=== PATIENT | male | born 1990 | race Caucasian/White ===

== ENCOUNTER 2023-06-05 19:40 | Emergency (ER) | payer MEDICAID ==
[~2023-06-05] VITALS: Ht 188 cm; Wt 103.2 kg
[2023-06-05 19:55] VITALS: BP 132/93; PULSE 103; TEMP 98.6; O2SAT 96
[2023-06-05] MEDS ORDERED: LIDOcaine 1% W/epiNEPHrine 1:100,000 20ml vial IJ ONE (21:05)
[2023-06-05] MEDS ORDERED: sulfamethoxazole/trimethoprim DS (800/160mg) tablet PO ONE (21:05)
[2023-06-05] MEDS ORDERED: HYDROcodone/acetaminophen 5mg/325mg tablet PO ONE (21:05)
[2023-06-05] MEDS ORDERED: TETanus/Pertussis (Acell)/Diphther VAC/PF (Tdap-Adult) 0.5ml syringe IMVAC ONE (21:05)
[2023-06-05 21:17] VITALS: RESP 18
[2023-06-05] MEDS ORDERED: SULF1TAB49 PO (21:36)
[2023-06-05] MEDS ORDERED: TRAM50TA2 PO (21:36)
== END 2023-06-05 22:01 | disposition home or self-care (01) ==
LOC: ER 19:41
DX: L02.31 Cutaneous abscess of buttock (principal); Z88.8 Allergy status to other drugs, medicaments and biological substances; Z79.899 Other long term (current) drug therapy
CPT/HCPCS: 10060; 90471; 90715; 99283; A6258

== ENCOUNTER 2024-01-02 15:30 | Emergency (ER) | payer MEDICAID ==
[~2024-01-02] VITALS: Ht 188 cm; Wt 115.9 kg
[2024-01-02] MEDS: triamcinolone acetonide 40mg/ml inj IM ONE (17:25)
[2024-01-02 17:35] VITALS: BP 129/89; PULSE 100; RESP 17; TEMP 98.3; O2SAT 99
== END 2024-01-02 17:36 | disposition home or self-care (01) ==
LOC: ER 15:31
DX: L23.7 Allergic contact dermatitis due to plants, except food (principal); Z72.89 Other problems related to lifestyle; Z88.1 Allergy status to other antibiotic agents
CPT/HCPCS: 96372; 99283; J3301